=== PATIENT | male | born 1990 | race Caucasian/White ===

== ENCOUNTER 2018-08-10 19:03 | Emergency (ER) | payer BC, OTHER ==
[2018-08-10 20:07] LABS: MONO NEGATIVE CONTROL ZONE White (Negative) (White); MONO POSITIVE CONTROL Pink Line (Positive) (PINK/RED); Mononucleosis NEGATIVE (NEGATIVE)
[2018-08-10] MEDS ORDERED: predniSONE 20 MG TAB ONE (20:48)
[2018-08-10] MEDS ORDERED: diphenhydrAMINE 25 MG CAP ONE (20:48)
== END 2018-08-10 21:05 | disposition home or self-care (01) ==
LOC: SCSER 19:03
DX: L50.0 Allergic urticaria (principal)
CPT/HCPCS: 36415; 86308; 87081; 87430; 99283; J7506

== ENCOUNTER 2020-08-27 16:37 | Inpatient (IN) | payer BC, OTHER ==
[~2020-08-27 16:37] MED LIST: Iopamidol-370 76% 500 ML 1 ML ONE
[2020-08-27 17:28] LABS: #Monocytes 0.4 thou/uL (0.11-0.59); #Neutrophils 3.8 thou/uL (1.40-6.50); %Basophils 0.4 % (0.0-1.0); %Eosinophils 0.6 % (0.0-10.0); %Lymphocytes 19.3 % (21.0-51.0); %Monocytes 7.9 % (0.0-10.0); %Neutrophils 71.8 % (42.0-75.0); Hemoglobin 15.3 g/dL (14.0-18.0); Mean Corpuscular HGB CONC 35.1 g/dL (32.0-36.0); Mean Corpuscular Hemoglobin 30.3 pg (27.0-31.0); Mean Corpuscular Volume 86.1 fL (78.0-98.0); Mean Platelet Volume 8.5 fL (7.4-10.4); Platelet Count 215 thou/uL (130-400); RBC Distribution Width 11.6 % (11.5-14.5); Red Blood Cell (RBC) Count 5.05 mill/uL (4.70-6.10); White Blood Cell (WBC) Count 5.3 thou/uL (4.8-10.8)
[2020-08-27 17:29] LABS: ALT (SGPT) 52 U/L (8-55); AST (SGOT) 46 U/L (5-34); Alkaline Phosphatase 50 U/L (40-110); Anion Gap 13 mmol/L (10-20); BUN (Urea Nitrogen) 7 mg/dL (8.9-20.6); Bilirubin, Total 0.6 mg/dL (0.2-1.2); Calc. Creatinine Clearance 0 mL/min (70-130); Calcium 8.3 mg/dL (7.8-10.44); Carbon Dioxide 30 mmol/L (22-29); Chloride 96 mmol/L (98-107); Estimated GFR-MDRD 89; Globulin 3.3 g/dL (2.4-3.5); Glucose 118 mg/dL (70-105); Potassium 3.1 mmol/L (3.5-5.1); Protein, Total 7.3 g/dL (6.0-8.3); Sodium 136 mmol/L (136-145)
--- NOTE | 2020-08-27 18:24 | RAD ---
PORTABLE CHEST: History: Covid positive, shortness of breath, vomiting, fever. Comparison: 08-24-2020 FINDINGS: Film is of suboptimal inspiration. Heart size is borderline. There is some subtle infiltrative appear ing changes in the left lung which would be consistent with the history of Covid pneumonia. There is questionable minimal changes within the right lower lobe. There is some right upper lobe change also seen. IMPRESSION: Relatively stable chest with finding suggestive of Covid pneumonia. POS: OFF
--- NOTE | 2020-08-27 18:35 | CT ---
CT ANGIO CHEST PERFORMED WITH INTRAVENOUS CONTRAST ENHANCEMENT AND 3D RECONSTRUCTIONS: History: Covid positive, shortness of breath, vomiting. FINDINGS: Bilateral multifocal infiltrate compatible with Covid pneumonia are seen. No significant mediastinal, hilar, or axillary adenopathy. Thoracic aorta is normal in caliber. There is good pulmonary artery opacification. No CT evidence for pulmonary embolus. Visualized liver parenchyma shows diffuse fatty change. IMPRESSION: 1. Diffuse multifocal ground glass infiltrates compatible with Covid pneumonia. 2. No CT evidence for pulmonary embolus. POS: OFF
[2020-08-27] MEDS ORDERED: Ibuprofen 800 MG TAB ONE (18:37)
[2020-08-27] MEDS ORDERED: Acetaminophen 325 MG TAB PO PRN (20:31)
--- NOTE | 2020-08-27 20:37 | PDOC.HHP ---
Hospitalist HPI - History of Present Illness Shortness of breath History of Present Illness: 30-year-old gentleman with no known past medical history presented emergency department with a complaint of progressive shortness of breath. Patient tested positive for COVID-19 about 10 days ago over the past few days has been experiencing increasing difficulty with breathing. Patient reports fever at home. He also reported cough productive of yellow sputum, sometimes bloodstained sputum. Patient denied any chest pain, denied any palpitation. His chest x-ray in the ED demonstrated diffuse infiltrate. CTA thorax done was negative for pulmonary embolism and confirmed diffuse infiltrate suggestive of COVID pneumonia. Patient oxygen saturation was 90% on room air but was tachypneic and tachycardic. Temperature up to 102.4 also recorded in the ED. Patient meets criteria for sepsis. He is admitted for further management. Hospitalist ROS - Review of Systems Other: Except as documented, all other systems reviewed and negative. - Medication Medications: Medication Instructions Recorded Confirmed Type Albuterol Sulfate HFA (OR) 1 puff INH QID PRN 08/27/20 08/27/20 History [Proventil Hfa (or)] Hospitalist History - Past Medical History Source: patient Cardiac: reports: no pertinent history Pulmonary: reports: no pertinent history PER DIEM RN: reports: no pertinent history Gastrointestinal: reports: no pertinent history Heme/Onc: reports: no pertinent history Hepatobiliary: reports: no pertinent history Psych: reports: no pertinent history Musculoskeletal: reports: no pertinent history Rheumatologic: reports: no pertinent history ENT: reports: no pertinent history Renal/: reports: no pertinent history Endocrine: reports: no pertinent history Dermatology: reports: no pertinent history - Family History Family History: reports: Other (Mother has hyperthyroidism) - Social History Smoking Status: Never smoker Alcohol: reports: None - Exam General Appearance: NAD, awake alert Eye: PERRL, anicteric sclera ENT: normocephalic atraumatic, no oropharyngeal lesions, moist mucosa Neck: supple, symmetric, no JVD, no thyromegaly, no lymphadenopathy Heart: RRR, no murmur, no gallops Respiratory: no wheezes, rales (Bilateral crackles.) Gastrointestinal: soft, non-tender, non-distended, normal bowel sounds Extremities: no cyanosis, no clubbing, no edema Skin: normal turgor, no rashes Neurological: cranial nerve grossly intact, no weakness, no focal deficits Musculoskeletal: normal strength, no muscle wasting Psychiatric: normal affect, normal behavior, A&O x 3 Hospitalist Results - Labs Result Diagrams: 08/28/20 03:57 08/28/20 03:57 Lab results: WBC 5.3 thou/uL (4.8-10.8) 08/27/20 17:06 Hgb 15.3 g/dL (14.0-18.0) 08/27/20 17:06 Hct 43.5 % (42.0-52.0) 08/27/20 17:06 MCV 86.1 fL (78.0-98.0) 08/27/20 17:06 Plt Count 215 thou/uL (130-400) 08/27/20 17:06 Neutrophils % 71.8 % (42.0-75.0) 08/27/20 17:06 Sodium 136 mmol/L (136-145) 08/27/20 17:06 Potassium 3.1 mmol/L (3.5-5.1) L 08/27/20 17:06 Chloride 96 mmol/L (98-107) L 08/27/20 17:06 Carbon Dioxide 30 mmol/L (22-29) H 08/27/20 17:06 BUN 7 mg/dL (8.9-20.6) L 08/27/20 17:06 Creatinine 0.99 mg/dL (0.7-1.3) 08/27/20 17:06 Glucose 118 mg/dL (70-105) H 08/27/20 17:06 Lactic Acid 1.2 mmol/L (0.5-2.2) 08/27/20 17:06 Calcium 8.3 mg/dL (7.8-10.44) 08/27/20 17:06 Total Bilirubin 0.6 mg/dL (0.2-1.2) 08/27/20 17:06 AST 46 U/L (5-34) H 08/27/20 17:06 ALT 52 U/L (8-55) 08/27/20 17:06 Alkaline Phosphatase 50 U/L (40-110) 08/27/20 17:06 Serum Total Protein 7.3 g/dL (6.0-8.3) 08/27/20 17:06 Albumin 4.0 g/dL (3.5-5.0) 08/27/20 17:06 - Radiology Interpretation CT scan - chest Status: report reviewed by me (CTA thorax report no pulmonary embolism. It demonstrated diffuse groundglass infiltrates suggestive of COVID pneumonia.) Hospitalist H&P A/P - Problem (1) Pneumonia due to COVID-19 virus Code(s): U07.1 - COVID-19; J12.89 - OTHER VIRAL PNEUMONIA Status: Acute (2) Acute respiratory failure with hypoxia Code(s): J96.01 - ACUTE RESPIRATORY FAILURE WITH HYPOXIA Status: Acute (3) Sepsis Code(s): A41.9 - SEPSIS, UNSPECIFIED ORGANISM Status: Acute (4) Hypokalemia Code(s): E87.6 - HYPOKALEMIA Status: Acute - Plan Plan: Admit to telemetry. Supportive measures. Supplemental oxygen as needed. Start oral dexamethasone. Vitamin D, C, zinc supplementation. Follow blood cultures. Empiric antibiotics. Replete potassium orally. Monitor BMP.
[2020-08-27 21:55] VITALS: BMI 32.7
[2020-08-27] MEDS: cefTRIAXone\\ROCEPHIN 1 GM in Sodium Chloride 0.9% 100 ML IVPB SCH (22:12)
[2020-08-27] MEDS: Cholecalciferol 1,000 UNITS (25 MCG) TAB PO SCH (22:14)
[2020-08-27] MEDS: Guaifenesin DM 100-10/5 ML UDCUP PO PRN (22:46)
[2020-08-27] MEDS: Azithromycin 500 MG in Sodium Chloride 0.9% 250 ML 250 ML IVPB SCH (22:46)
[2020-08-28] MEDS ORDERED: Albuterol 200 PUFF (6.7GM INHALER) INH PRN ×2 (03:39→07:44)
[2020-08-28 04:42] LABS: #Lymphocytes 1.7 thou/uL (1.20-3.40); #Monocytes 0.6 thou/uL (0.11-0.59); %Basophils 0.4 % (0.0-1.0); %Eosinophils 0.8 % (0.0-10.0); %Monocytes 13.3 % (0.0-10.0); %Neutrophils 46.6 % (42.0-75.0); Hemoglobin 14.2 g/dL (14.0-18.0); Mean Corpuscular HGB CONC 34.7 g/dL (32.0-36.0); Mean Corpuscular Hemoglobin 29.7 pg (27.0-31.0); Mean Corpuscular Volume 85.5 fL (78.0-98.0); Mean Platelet Volume 8.3 fL (7.4-10.4); Platelet Count 219 thou/uL (130-400); RBC Distribution Width 11.8 % (11.5-14.5); White Blood Cell (WBC) Count 4.3 thou/uL (4.8-10.8)
[2020-08-28 05:19] LABS: Anion Gap 14 mmol/L (10-20); BUN (Urea Nitrogen) 8 mg/dL (8.9-20.6); Calc. Creatinine Clearance 207 mL/min (70-130); Calcium 8.1 mg/dL (7.8-10.44); Carbon Dioxide 26 mmol/L (22-29); Chloride 99 mmol/L (98-107); Estimated GFR-MDRD Greater than 90; Glucose 95 mg/dL (70-105); Sodium 136 mmol/L (136-145)
[2020-08-28 05:23] LABS: Potassium 2.9 mmol/L (3.5-5.1)
[2020-08-28] MEDS ORDERED: Potassium Chloride 20 MEQ TAB PO SCH ×2 (06:15→14:15)
[2020-08-28] MEDS: Potassium Chloride 20 MEQ in Premix Bag 1 BAG IVPB SCH ×2 (07:09→09:52)
[2020-08-28] MEDS ORDERED: Dexamethasone 4 MG TAB PO SCH (08:00)
[2020-08-28] MEDS ORDERED: Ascorbic Acid 500 mg Chewable Tablet PO SCH (09:00)
[2020-08-28] MEDS ORDERED: Enoxaparin Sodium 40 MG/0.4 ML SYRINGE SC SCH ×2 (09:00)
[2020-08-28] MEDS ORDERED: FLU VACC QS2020-21(6MOS UP)/PF 60 MCG/0.5 ML SYRINGE IM ONE (09:00)
[2020-08-28] MEDS: methylPREDNISolone Sod Succ 40 MG VIAL IVP SCH ×2 (09:52→21:26)
[2020-08-28] MEDS: Ascorbic Acid 500 mg Chewable Tablet PO SCH ×2 (09:52→21:25)
[2020-08-28] MEDS: Enoxaparin Sodium 60 MG/0.6 ML SYRINGE SC SCH (09:52)
[2020-08-28] MEDS: Guaifenesin DM 100-10/5 ML UDCUP PO PRN ×2 (09:53→21:26)
[2020-08-28] MEDS: Zinc Sulfate 220 MG CAP PO SCH (09:53)
--- NOTE | 2020-08-28 14:14 | PDOC.HOSPP ---
- Subjective Subjective: pt still has significant cough. afebrile. - Objective Vital Signs & Weight: Vital Signs (12 hours) Temp Pulse Resp BP Pulse Ox 08/28/20 12:02 98.7 F 89 15 113/63 94 L 08/28/20 10:30 96 08/28/20 07:55 98.4 F 88 22 H 113/73 98 08/28/20 03:42 98.7 F 81 20 110/69 98 Weight Weight 228 lb 1.6 oz I&O: 08/27/20 08/28/20 08/29/20 06:59 06:59 06:59 Intake Total 590 480 Output Total 300 Balance 290 480 Result Diagrams: 08/28/20 03:57 08/28/20 03:57 Radiology Reviewed by me: Yes EKG Reviewed by me: Yes Hospitalist ROS - Medication Medications: Active Medications Generic Name Dose Route Start Last Admin Trade Name Freq PRN Reason Stop Dose Admin Ascorbic Acid 1,000 mg 08/28/20 09:00 08/28/20 09:52 Ascorbic Acid 500 Mg Chewable Tablet PO 1,000 mg BID WILFRIDO Administration Cholecalciferol 2,000 units 08/27/20 21:00 08/27/20 22:14 Cholecalciferol 1,000 Units (25 Mcg) Tab PO 2,000 units HS WILFRIDO Administration Enoxaparin Sodium 60 mg 08/28/20 09:00 08/28/20 09:52 Enoxaparin Sodium 60 Mg/0.6 Ml Syringe SC 60 mg DAILY WILFRIDO Administration Guaifenesin/Dextromethorphan 15 ml 08/27/20 20:31 08/28/20 09:53 Guaifenesin Dm 100-10/5 Ml Udcup PO 15 ml Q4H PRN Administration Cough Azithromycin 500 mg/ Sodium 250 mls @ 250 mls/hr 08/27/20 22:00 08/27/20 22:46 Chloride IVPB 250 mls Q24HR WILFRIDO Administration Ceftriaxone Sodium 1 gm/ 100 mls @ 200 mls/hr 08/27/20 21:00 08/27/20 22:12 Sodium Chloride IVPB 100 mls Q24HR WILFRIDO Administration Methylprednisolone Sodium Succinate 40 mg 08/28/20 09:00 08/28/20 09:52 Methylprednisolone Sod Succ 40 Mg Vial IVP 40 mg Q12HR WILFRIDO Administration Sodium Chloride 10 ml 08/28/20 09:00 08/28/20 09:51 Flush - Normal Saline 10 Ml Syringe IVF 10 ml Q12HR WILFRIDO Administration Zinc Sulfate 220 mg 08/28/20 09:00 08/28/20 09:53 Zinc Sulfate 220 Mg Cap PO 220 mg DAILY WILFRIDO Administration - Exam General Appearance: NAD Eye: PERRL ENT: normocephalic atraumatic Neck: supple, JVD Heart: RRR, no murmur Respiratory: rhonchi Gastrointestinal: soft, non-tender Extremities: no cyanosis Skin: normal turgor Neurological: cranial nerve grossly intact Musculoskeletal: normal tone Hosp A/P - Plan This is a pleasant 30 years old gentleman who has no known past significant history, who presented to the ED with progressive dyspnea. He was tested positive for COVID-19 about 10 days ago. Acute hypoxic respiratory failure secondary to COVID-19 --Continue O2 supplement, wean as tolerated. Continue Decadron, empiric antibiotic vitamin supplements COVID-19 pneumonia --Management as above Sepsis, present on admission, secondary to above --Continue IV antibiotic, follow culture Hypokalemia --Replace, follow a.m. lab DVT ppx: Lovenox GI ppx: PPI Code Status: Full Anticipated Dispo: Home when stable
[2020-08-28] MEDS: Mometasone 200 MCG/Formoterol 5 MCG 120 PUFF INHALER INH SCH (18:28)
--- NOTE | 2020-08-28 20:44 | CON ---
DATE OF CONSULTATION: 08/28/2020 HISTORY OF PRESENT ILLNESS: Maximino Christopher is a 30-year-old male, who works at the [employer]. Ten days ago, he developed symptoms and was diagnosed with coronavirus. He developed shortness of breath, borderline hypoxemia, and subsequently has been admitted. I was consulted. He says he is feeling better. PAST MEDICAL HISTORY: Unremarkable. FAMILY HISTORY: Unremarkable. SOCIAL HISTORY: He is recently . His has COVID-19 as well. REVIEW OF SYSTEMS: Otherwise negative. PHYSICAL EXAMINATION: GENERAL: He is in no distress. VITAL SIGNS: Afebrile, heart rate is 88, respiratory rates in the low 20s, oximetry is 98% on 2 L, and blood pressure 113/73. HEAD AND NECK: Unremarkable. LUNGS: Clear. HEART: Regular rhythm. ABDOMEN: Soft and nontender. EXTREMITIES: Without clubbing, cyanosis, or edema. LABORATORY DATA: White count is 4.3, hemoglobin 14.2, and platelets 219. Sodium 136, potassium 2.9, chloride 99, bicarb 26, BUN 8, and creatinine 0.7. IMAGING DATA: CT scan shows patchy minimal lower lobe infiltrates. IMPRESSION: COVID pneumonia most likely. I agree with empiric broad antimicrobial coverage initially. Steroids. DVT prophylaxis and serial exams. His gas exchange is not poor and he might actually be weanable off oxygen. His biggest complaint is his cough. We will re-evaluate in the morning. Medications have been adjusted for the severity of his illness. This is a 50 min visit with greater than 50% spent on unit with coordination of care. Job ID: [id number] [facility]
[2020-08-28] MEDS: Cholecalciferol 1,000 UNITS (25 MCG) TAB PO SCH (21:25)
[2020-08-28] MEDS: cefTRIAXone\\ROCEPHIN 1 GM in Sodium Chloride 0.9% 100 ML IVPB SCH (21:26)
[2020-08-28] MEDS: Azithromycin 500 MG in Sodium Chloride 0.9% 250 ML 250 ML IVPB SCH (21:31)
[2020-08-29 06:13] LABS: #Lymphocytes 0.8 thou/uL (1.20-3.40); #Monocytes 0.4 thou/uL (0.11-0.59); #Neutrophils 4.4 thou/uL (1.40-6.50); %Basophils 0.3 % (0.0-1.0); %Eosinophils 0.4 % (0.0-10.0); %Lymphocytes 13.4 % (21.0-51.0); %Monocytes 6.4 % (0.0-10.0); %Neutrophils 79.5 % (42.0-75.0); Mean Corpuscular HGB CONC 34.6 g/dL (32.0-36.0); Mean Corpuscular Hemoglobin 29.8 pg (27.0-31.0); Mean Corpuscular Volume 86.1 fL (78.0-98.0); Platelet Count 283 thou/uL (130-400); RBC Distribution Width 11.6 % (11.5-14.5); Red Blood Cell (RBC) Count 4.72 mill/uL (4.70-6.10); White Blood Cell (WBC) Count 5.6 thou/uL (4.8-10.8)
[2020-08-29 06:38] LABS: Anion Gap 12 mmol/L (10-20); BUN (Urea Nitrogen) 8 mg/dL (8.9-20.6); CRP (Inflammatory) 0.64 mg/dL (= or < 0.5); Calc. Creatinine Clearance 207 mL/min (70-130); Calcium 8.7 mg/dL (7.8-10.44); Carbon Dioxide 27 mmol/L (22-29); Chloride 102 mmol/L (98-107); Estimated GFR-MDRD Greater than 90; Glucose 183 mg/dL (70-105); Magnesium 2.3 mg/dL (1.6-2.6); Potassium 3.6 mmol/L (3.5-5.1); Sodium 137 mmol/L (136-145)
[2020-08-29] MEDS: Mometasone 200 MCG/Formoterol 5 MCG 120 PUFF INHALER INH SCH ×2 (06:55→18:57)
[2020-08-29] MEDS: Enoxaparin Sodium 60 MG/0.6 ML SYRINGE SC SCH (09:55)
[2020-08-29] MEDS: Ascorbic Acid 500 mg Chewable Tablet PO SCH ×2 (09:56→21:49)
[2020-08-29] MEDS: Zinc Sulfate 220 MG CAP PO SCH (09:56)
[2020-08-29] MEDS: methylPREDNISolone Sod Succ 40 MG VIAL IVP SCH ×2 (09:56→21:50)
--- NOTE | 2020-08-29 13:55 | PDOC.HOSPP ---
- Subjective Subjective: c/o cough. afebrile. stat mid 90 on RM cultures no growth Ferritin high d/t acute phase reactant CRP mildly elevated - Objective Vital Signs & Weight: Vital Signs (12 hours) Temp Pulse Resp BP Pulse Ox 08/29/20 12:50 98.8 F 98 20 117/69 94 L 08/29/20 10:00 98.8 F 97 22 H 129/61 94 L 08/29/20 04:10 98.7 F 102 H 18 119/63 93 L 08/29/20 01:55 98.4 F 80 18 108/55 L 93 L Weight Admit Weight 228 lb 1.6 oz Weight 228 lb 1.6 oz I&O: 08/28/20 08/29/20 08/30/20 06:59 06:59 06:59 Intake Total 360 280 8207 Output Total 300 700 300 Balance 849 78 2816 Result Diagrams: 08/29/20 04:54 08/29/20 04:54 Radiology Reviewed by me: Yes EKG Reviewed by me: Yes Hospitalist ROS - Medication Medications: Active Medications Generic Name Dose Route Start Last Admin Trade Name Freq PRN Reason Stop Dose Admin Albuterol Sulfate 2 puff 08/28/20 07:44 08/28/20 22:30 Albuterol 200 Puff (6.7gm Inhaler) INH 2 puff Q4H PRN Administration Dyspepsia Ascorbic Acid 1,000 mg 08/28/20 09:00 08/29/20 09:56 Ascorbic Acid 500 Mg Chewable Tablet PO 1,000 mg BID WILFRIDO Administration Cholecalciferol 2,000 units 08/27/20 21:00 08/28/20 21:25 Cholecalciferol 1,000 Units (25 Mcg) Tab PO 2,000 units HS WILFRIDO Administration Enoxaparin Sodium 60 mg 08/28/20 09:00 08/29/20 09:55 Enoxaparin Sodium 60 Mg/0.6 Ml Syringe SC 60 mg DAILY WILFRIDO Administration Guaifenesin/Dextromethorphan 15 ml 08/27/20 20:31 08/28/20 21:26 Guaifenesin Dm 100-10/5 Ml Udcup PO 15 ml Q4H PRN Administration Cough Azithromycin 500 mg/ Sodium 250 mls @ 250 mls/hr 08/27/20 22:00 08/28/20 21:31 Chloride IVPB 250 mls Q24HR WILFRIDO Administration Ceftriaxone Sodium 1 gm/ 100 mls @ 200 mls/hr 08/27/20 21:00 08/28/20 21:26 Sodium Chloride IVPB 100 mls Q24HR WILFRIDO Administration Methylprednisolone Sodium Succinate 40 mg 08/28/20 09:00 08/29/20 09:56 Methylprednisolone Sod Succ 40 Mg Vial IVP 40 mg Q12HR WILFRIDO Administration Mometasone Furoate/Formoterol Fumar 2 puff 08/28/20 18:30 08/29/20 06:55 Mometasone 200 Mcg/Formoterol 5 Mcg 120 Puff Inhaler INH 2 puff BID-RT WILFRIDO Administration Sodium Chloride 10 ml 08/28/20 09:00 08/29/20 09:56 Flush - Normal Saline 10 Ml Syringe IVF 10 ml Q12HR WILFRIDO Administration Zinc Sulfate 220 mg 08/28/20 09:00 08/29/20 09:56 Zinc Sulfate 220 Mg Cap PO 220 mg DAILY WILFRIDO Administration - Exam General Appearance: NAD Eye: PERRL ENT: normocephalic atraumatic Neck: supple Heart: RRR Respiratory: CTAB Gastrointestinal: soft, non-tender Extremities: no cyanosis Skin: normal turgor Neurological: cranial nerve grossly intact Musculoskeletal: normal tone Psychiatric: normal affect, normal behavior, A&O x 3 Hosp A/P - Plan This is a pleasant 30 years old gentleman who has no known past significant history, who presented to the ED with progressive dyspnea. He was tested positive for COVID-19 about 10 days ago. Acute hypoxic respiratory failure secondary to COVID-19 --Continue O2 supplement, wean as tolerated. Continue Decadron, empiric antibiotics, vitamin supplements --add anti-tussives --cont supportive cares, probably home tomorrow if cont to improve --appreciate Dr. Bazan's input. COVID-19 pneumonia --Management as above Sepsis, present on admission, secondary to above --Continue IV antibiotic, follow cultures. Pending Hypokalemia --corrected DVT ppx: Lovenox GI ppx: PPI Code Status: Full Anticipated Dispo: Home when stable
--- NOTE | 2020-08-29 16:46 | PRG ---
DATE OF SERVICE: 08/29/2020 SUBJECTIVE: Mr. Christopher says he is feeling much better. His oximetry is up in the low to mid 90s on room air now. OBJECTIVE: VITAL SIGNS: He is afebrile, heart rate is in the 90s, blood pressure is 117/69. LUNGS: Unchanged. HEART: Unchanged. ABDOMEN: Unchanged. ASSESSMENT AND PLAN: He is being switched to p.o. antibiotics now. I continue him on IV steroids for one more night and then do a 2- to 3-week prednisone taper starting tomorrow. We would keep him on a prophylactic dose of Eliquis for a month. He should stay on vitamin C in my opinion for 2 to 4 more weeks. Job ID: [id number]
[2020-08-29] MEDS: Benzonatate 100 MG CAP PO SCH ×2 (17:13→21:49)
[2020-08-29] MEDS: guaiFENesin ER 600 MG TAB PO SCH (21:49)
[2020-08-29] MEDS: Cholecalciferol 1,000 UNITS (25 MCG) TAB PO SCH (21:50)
[2020-08-29] MEDS: Apixaban 2.5 MG TAB PO SCH (23:26)
[2020-08-30 05:25] LABS: #Lymphocytes 1.1 thou/uL (1.20-3.40); #Monocytes 0.7 thou/uL (0.11-0.59); #Neutrophils 8.2 thou/uL (1.40-6.50); %Basophils 0.1 % (0.0-1.0); %Eosinophils 0.3 % (0.0-10.0); %Lymphocytes 10.6 % (21.0-51.0); Hemoglobin 13.7 g/dL (14.0-18.0); Mean Corpuscular HGB CONC 33.8 g/dL (32.0-36.0); Mean Corpuscular Hemoglobin 29.2 pg (27.0-31.0); Mean Corpuscular Volume 86.3 fL (78.0-98.0); Mean Platelet Volume 8.5 fL (7.4-10.4); Platelet Count 339 thou/uL (130-400); RBC Distribution Width 11.8 % (11.5-14.5); Red Blood Cell (RBC) Count 4.69 mill/uL (4.70-6.10)
[2020-08-30] MEDS: Guaifenesin DM 100-10/5 ML UDCUP PO PRN (05:28)
[2020-08-30] MEDS: Mometasone 200 MCG/Formoterol 5 MCG 120 PUFF INHALER INH SCH (05:33)
[2020-08-30 05:52] LABS: Anion Gap 14 mmol/L (10-20); BUN (Urea Nitrogen) 11 mg/dL (8.9-20.6); CRP (Inflammatory) Less than 0.50 mg/dL (= or < 0.5); Calc. Creatinine Clearance 210 mL/min (70-130); Calcium 8.5 mg/dL (7.8-10.44); Carbon Dioxide 23 mmol/L (22-29); Chloride 105 mmol/L (98-107); Estimated GFR-MDRD Greater than 90; Glucose 149 mg/dL (70-105); Potassium 3.8 mmol/L (3.5-5.1); Sodium 138 mmol/L (136-145)
[2020-08-30] MEDS: Ascorbic Acid 500 mg Chewable Tablet PO SCH (07:36)
[2020-08-30] MEDS: Benzonatate 100 MG CAP PO SCH (07:37)
[2020-08-30] MEDS: guaiFENesin ER 600 MG TAB PO SCH (07:37)
[2020-08-30] MEDS: Apixaban 2.5 MG TAB PO SCH (07:37)
[2020-08-30] MEDS: methylPREDNISolone Sod Succ 40 MG VIAL IVP SCH (07:37)
[2020-08-30] MEDS: Zinc Sulfate 220 MG CAP PO SCH (07:37)
[2020-08-30] MEDS ORDERED: Azithromycin 250 MG TAB PO SCH (09:00)
[2020-08-30 11:36] VITALS: BP 111/66; TEMP 98.2
--- NOTE | 2020-08-30 12:22 | PRG ---
DATE OF SERVICE: 08/30/2020 Mr. Christopher has done well overnight. He is afebrile. There has been no change overall. His gas exchange continues to be stable, so I think it is reasonable for him to go home. I have recommended a 3-4 week prednisone taper. I have recommended 1-month of prophylactic dose Eliquis. A baby aspirin could be added to that. I have recommended a Z-Jose. He should do well. He should see me in 6 weeks for chest x-ray. Job ID: [id number] [facility]
--- NOTE | 2020-08-30 15:11 | DIS ---
DATE OF ADMISSION: 08/27/2020 DATE OF DISCHARGE: 08/30/2020 DISCHARGE DIAGNOSES: 1. Acute hypoxic respiratory failure secondary to COVID-19. 2. COVID-19 pneumonia. 3. Sepsis, present on admission, secondary to above. 4. Hypokalemia, resolved. CONSULTATIONS: Dr. Bazan, Pulmonology. PROCEDURE PERFORMED: None. LABORATORY DATA AND IMAGING STUDY: WBC 10.0, hemoglobin 13.3, hematocrit 10.7, platelets 339. D-dimer 0.36. Sodium 138, potassium 3.8, chloride 105, carbon dioxide 23, anion gap 14, creatinine 0.76. Magnesium 2.3. C-reactive protein was 0.64, and repeated went down to 0.5. Ferritin 642. Chest x-ray, relatively stable chest, findings suggestive of COVID pneumonia. CTA, diffuse multifocal ground-glass infiltrate compatible with COVID pneumonia. No evidence of PE. HISTORY OF PRESENT ILLNESS AND BRIEF HOSPITAL COURSE: The patient is a pleasant 30 years old without significant past medical history, who presented to the ED with complaint of progressive dyspnea. The patient was tested for COVID-19 about 10 days ago, and over the past few days, he experienced more increased difficulty breathing. For that reason, he came to the ED for further evaluation. He also reported he had a fever at home intermittently. Initial workup in the ED consistent with COVID pneumonia. CTA of the chest was negative for PE however, there was diffuse infiltrate. For that reason, he was subsequently admitted to the hospitalist service for further management. Pulmonology was consulted. The patient was given empiric IV antibiotics with azithromycin, Rocephin, IV steroids, empiric prophylaxis dose of Eliquis. Multivitamin including zinc and vitamin D, vitamin C. His electrolytes was corrected. His oxygen has been weaned down. He has been on room air for the past couple of days and also remain afebrile. I have discussed with Pulmonology, Dr. Bazan. He recommended to continue with prednisone taper over the next 3 to 4 weeks. He also recommended discharge home with azithromycin, and Eliquis for DVT prophylaxis. The patient needs to follow with him in about 4 to 6 weeks to repeat chest x-ray to make sure that complete resolution of his pneumonia. Plan of care discussed with the patient. He verbalized understanding and agreeable with the plan. DISPOSITION: The patient is stable to discharge home. ACTIVITY: As tolerated. DIET: Regular diet. FOLLOWUP CARE: The patient to follow up with his PCP in 1 to 2 weeks and his keno dealer in 4 to 6 weeks, with Dr. Bazan. PHYSICAL EXAMINATION: VITAL SIGNS: Temperature is 98.2, pulse 92, respiratory rate 16, saturating 93% on room air, blood pressure 111/66. GENERAL APPEARANCE: The patient appears to be comfortable. He is not in acute distress. HEENT: Normocephalic, atraumatic. Mucous membranes moist. NECK: Supple. No lymphadenopathy. No JVD. CARDIOVASCULAR: Regular rate and rhythm. S1 and S2 noted. No murmur. PULMONOLOGY: Clear to auscultation bilaterally. ABDOMEN: Soft, nontender, nondistended. Positive bowel sounds. MUSCULOSKELETAL: No joint pain or tenderness. No lower extremity edema. SKIN: Intact. NEUROLOGIC: Cranial nerves 2 through 12 grossly intact. No focal weakness. PSYCHIATRIC: The patient is alert and oriented x3 with normal affect. DISCHARGE MEDICATIONS: 1. Albuterol inhaler one puff q.4 p.r.n. 2. Mucinex 600 mg b.i.d. 3. Dulera 200/5 mcg inhaler two puffs b.i.d. 4. Eliquis 2.5 mg b.i.d. x1 month. 5. Prednisone 10 mg tablet taper over the next 3 to 4 weeks. 6. Protonix 40 mg p.o. daily. 7. Tessalon 100 mg t.i.d. p.r.n. for cough. 8. Vitamin C 1000 mg b.i.d. 9. Vitamin D3 2000 units p.o. at bedtime. 10. Zinc 220 mg p.o. daily. 11. Zithromax 250 mg p.o. daily for 5 days. Thank you for allowing us to participate in this patient's care. Discharge time spent, 35 minutes. Job ID: [id number]
--- NOTE | 2020-09-01 14:07 | EKG ---
Test Reason : Blood Pressure : / mmHG Vent. Rate : 109 BPM Atrial Rate : 109 BPM P-R Int : 148 ms QRS Dur : 082 ms QT Int : 336 ms P-R-T Axes : 010 046 -15 degrees QTc Int : 452 ms Sinus tachycardia Cannot rule out Inferior infarct , age undetermined Cannot rule out Anterior infarct , age undetermined Abnormal ECG Confirmed by PRASHANTH RICE ([id number]), city editor BARBARA HOLDER ([id number]) on 09/01/2020 2:07:11 PM Referred By: Confirmed By:PRASHANTH Sanchez
== END 2020-08-30 13:01 | disposition home or self-care (01) | DRG 871 ==
LOC: ERS 16:37 → OBSVTOIN 19:44 → 2SW 19:44
PROVIDERS: ADMIT Internal Medicine; ATTEND Internal Medicine
DX: A41.89 Other specified sepsis (principal); U07.1 COVID-19; J12.89 Other viral pneumonia; J96.01 Acute respiratory failure with hypoxia; E87.6 Hypokalemia; Z88.8 Allergy status to other drugs, medicaments and biological substances; Z79.51 Long term (current) use of inhaled steroids
CPT/HCPCS: 36415; 71045; 71275; 80048; 80053; 82728; 83605; 83735; 85025; 85379; 86140; 87040; 93005; 94760; 96374; J0456; J0696; J1650; J2405; J2920; J3480; J3490; J7050; Q9967

== ENCOUNTER 2020-10-03 08:23 | Outpatient (CLI) | payer BC ==
--- NOTE | 2020-10-03 08:45 | RAD ---
CHEST 2 VIEWS: Date: 10/03/2020 HISTORY: Dyspnea. COMPARISON: Radiograph of chest dated 08/27/2020. FINDINGS: Lungs are clear. No pneumothorax or effusion. Cardiac silhouette and mediastinal contours are within normal limits. IMPRESSION: No acute intrathoracic abnormality. POS: [facility]
== END 2020-10-03 08:24 | disposition home or self-care (01) ==
LOC: BICRAD 08:23
PROVIDERS: ATTEND Internal Medicine Critical Care Medicine
DX: R06.00 Dyspnea, unspecified (principal)
CPT/HCPCS: 71046

== ENCOUNTER 2025-10-20 05:07 | Emergency (ER) | payer BC | END 2025-10-20 05:53 | disposition home or self-care (01) | LOC: ERS 05:07 | DX: S63.501A Unspecified sprain of right wrist, initial encounter (principal); W22.8XXA Striking against or struck by other objects, initial encounter; Y93.89 Activity, other specified | CPT/HCPCS: 99283 ==